=== PATIENT | female | born 1995 | race African-American/Black ===

== ENCOUNTER 2017-06-09 12:58 | Emergency (ER) | payer OTHER ==
[2017-06-09 13:13] VITALS: BP 151/73; BMI 19.4
[2017-06-09 13:25] LABS: BILIRUBIN,URINE NEGATIVE (NEGATIVE); BLOOD/HEMOGLOBIN,URINE NEGATIVE (NEGATIVE); GLUCOSE, URINE NEGATIVE (NEGATIVE); KETONES,URINE NEGATIVE (NEGATIVE); LEUKOCYTE ESTERASE ,URINE 2+ (NEGATIVE); NITRITES,URINE NEGATIVE (NEGATIVE); PH,URINE 6.5 (5.0 - 8.0); PROTEIN,URINE 1+ (NEGATIVE); UROBILINOGEN,URINE NORMAL (NORMAL)
[2017-06-09 13:37] LABS: APPEARANCE,URINE CLOUDY (CLEAR); COLOR,URINE YELLOW (YELLOW)
--- NOTE | 2017-06-09 13:37 | DR.GENAD ---
HPI - PCP Primary Care Physician: Mauri - HPI Comment HPI Comment: Low back pain - Complaint/Symptoms Chief Complaint:: "I helped my sister move some boxes Saturday, and now for 2 days I have been having pains come from my butt to the middle of my back. It is really [place] pains. It comes and goes. I am 20 wks + 1 day . - Nurses notes reviewed Nurses Notes Review: Yes - Source History Provided: Patient - Mode of Arrival Mode of Arrival: Ambulatory - Timing Onset of Chief Complaint: 06/07/17 - Duration Duration: Intermittent - Location Location: low back - Severity Severity: Moderate - Associated Signs and Symptoms Associated Signs and Symptoms: none PMH - PMH Past Medical History: Yes Past Medical History: Anemia Past Medical History Comment: Sickle cell anemia Past Surgical History: No - Family History History of Family Medical Conditions: Yes Family Medical History: Diabetes Mellitus, [place], Hypertension - Social History Does patient currently use any type of tobacco product: Yes Have you used tobacco products in the last 12 months: Yes Type of Tobacco Use: Cigarettes Alcohol Use: None Do you use any recreational Drugs:: No Lives With: Family Lives Where: Home - infectious screening In the last 2 months have you had wt loss of >10#?: NO Have you had fever, night sweats or hemotysis?: No Have you traveled outside the country in the last 6 months?: No Isolation: Standard ROS - Review of Systems Constitutional: No Symptoms Reported Eyes: No Symptoms Reported ENTM: No Symptoms Reported Respiratoy: No Symptoms Reported Cardiovascular: No Symptoms Reported Gastrointestinal/Abdominal: No Symptoms Reported Genitourinary: No Symptoms Reported Neurological: No Symptoms Reported Musculoskeletal: Back Pain Integumentary: No Symptoms Reported Hematologic/Lymphatic: No Symptoms Reported Endocrine: No Symptoms Reported Psychiatric: No Symptoms Reported All Other Systems: Reviewed and Negative PE - Vital Signs Vitals: Temperature 97.4 F Pulse Rate 102 Respiratory Rate 18 Blood Pressure 151/73 O2 Sat by Pulse Oximetry 97 - General Limitations: No Limitations General Appearance: Alert, Other (appears in pain) - Head Head Exam: Normal Inspection - Eyes Eye exam: Normal Appearance, PERRL, EOMI - ENT ENT Exam: Normal Exam - Neck Neck Exam: Normal Inspection - Chest Chest Inspection: Normal Inspection - Respiratory Respiratory Exam: Normal Lung Sounds Bilat Respiratory Exam: Bilateral Clear to Auscultation - Cardiovascular Cardiovascular Exam: Regular Rate, Normal Rhythm - Abdominal Exam Abdominal Exam: Normal Inspection, Normal Bowel Sounds, Soft - Extremities Extremities Exam: Normal Inspection - Back Back Exam: Normal Inspection, Paraspinal Tenderness (Right lumbar paraveretebral muscles) - Neurologic Neurological Exam: Alert, Oriented X3, CN II-XII Intact - Psychiatric Psychiatric Exam: Normal Affect, Normal Mood - Skin Skin Exam: Warm, Dry, Intact, Normal Color ROR - Labs Reviewed Laboratory: Specimen Type Clean catch urine 06/09/17 13:16 Urine Color Yellow (YELLOW) 06/09/17 13:16 Urine Appearance Cloudy (CLEAR) 06/09/17 13:16 Urine pH 6.5 (5.0 - 8.0) 06/09/17 13:16 Ur Specific [place] 1.010 (1.000-1.030) 06/09/17 13:16 Urine Protein 1+ (NEGATIVE) 06/09/17 13:16 Urine Glucose (UA) Negative (NEGATIVE) 06/09/17 13:16 Urine Ketones Negative (NEGATIVE) 06/09/17 13:16 Urine Occult Blood Negative (NEGATIVE) 06/09/17 13:16 Urine Nitrite Negative (NEGATIVE) 06/09/17 13:16 Urine Bilirubin Negative (NEGATIVE) 06/09/17 13:16 Urine Urobilinogen Normal (NORMAL) 06/09/17 13:16 Ur Leukocyte Esterase 2+ (NEGATIVE) 06/09/17 13:16 Urine RBC Rare /HPF (NEGATIVE) 06/09/17 13:16 Urine WBC 0 -2 /HPF (NEGATIVE) 06/09/17 13:16 Ur Squamous Epith Cells Numerous /HPF (NEGATIVE) 06/09/17 13:16 Amorphous Sediment 1+ /HPF (NEGATIVE) 06/09/17 13:16 Urine Bacteria Trace /HPF (NEGATIVE) 06/09/17 13:16 Urine Yeast Rare /HPF (NEGATIVE) 06/09/17 13:16 Ur Culture Indicated? No/not indicated 06/09/17 13:16 - Diagnosis Discharge Problem: UTI (urinary tract infection) during , Low back pain Discharge Problem: (Ruled Out): UTI (urinary tract infection) - Discharge Plan Disposition: HOME, SELF-CARE Condition: Stable - Follow ups/Referrals Follow ups/Referrals: DIANE STEPHEN [Primary Care Provider] - 3 days - Instructions
[2017-06-09 13:40] LABS: BACTERIA,URINE TRACE /HPF (NEGATIVE); RBC,URINE RARE /HPF (NEGATIVE); SQUAMOUS EPITHELIAL CELL,UR NUMEROUS /HPF (NEGATIVE)
[2017-06-09 13:41] LABS: AMORPHOUS SEDIMENT,UR 1+ /HPF (NEGATIVE); YEAST,URINE RARE /HPF (NEGATIVE)
[2017-06-09] MEDS ORDERED: MACROBID CAP 100 MG EXT REL PO ONE ×2 (14:49→14:52)
== END 2017-06-09 14:54 | disposition home or self-care (01) ==
LOC: ER 13:06
DX: M54.5 Low back pain (principal); Z3A.20 20 weeks gestation of pregnancy
CPT/HCPCS: 81001; 99283; 99284

== ENCOUNTER 2020-10-06 11:43 | Inpatient (IN) ==
[2020-10-06] MEDS ORDERED: LR 1000 ML IV 1,000 ML IV ONE ×4 (12:09→19:43)
[2020-10-06] MEDS ORDERED: MAGNESIUM SULFATE 40 GRAMS IV IV PRN (12:13)
[2020-10-06 13:00] LABS: BILIRUBIN,URINE NEGATIVE (NEGATIVE); BLOOD/HEMOGLOBIN,URINE 1+ (NEGATIVE); GLUCOSE, URINE NEGATIVE (NEGATIVE); KETONES,URINE NEGATIVE (NEGATIVE); LEUKOCYTE ESTERASE ,URINE 3+ (NEGATIVE); NITRITES,URINE NEGATIVE (NEGATIVE); PROTEIN,URINE NEGATIVE (NEGATIVE); UROBILINOGEN,URINE NORMAL (NORMAL)
[2020-10-06] MEDS ORDERED: MAGNESIUM SULFATE 40 GRAMS IV 40 G/1,000 ML BAG IV ONE (13:30)
[2020-10-06 13:33] LABS: APPEARANCE,URINE FLOCCULENT (CLEAR); COLOR,URINE YELLOW (YELLOW)
[2020-10-06 13:38] LABS: AMORPHOUS SEDIMENT,UR TRACE /HPF (NEGATIVE); BACTERIA,URINE TRACE /HPF (NEGATIVE); SQUAMOUS EPITHELIAL CELL,UR MODERATE /HPF (NEGATIVE)
[2020-10-06] MEDS: LR 1000 ML IV 1,000 ML IV SCH ×2 (14:00→22:00)
[2020-10-07] MEDS ORDERED: LR 1000 ML IV 1,000 ML IV ONE ×2 (02:55→09:09)
[2020-10-07] MEDS: LR 1000 ML IV 1,000 ML IV SCH ×2 (03:00→10:30)
[2020-10-07] MEDS: PROCARDIA (PLAIN) CAP 10 MG PO SCH ×2 (08:05→13:45)
[2020-10-07] MEDS ORDERED: ROCEPHIN 1 GRAM IV PREMIX 1 G/50 ML IV.SOLN. IV SCH (09:00)
[2020-10-07] MEDS ORDERED: PRENATAL PLUS PO SCH (09:00)
[2020-10-07] MEDS ORDERED: ROCEPHIN 1 GRAM IV PREMIX 1 G/50 ML IV.SOLN. IV ONE (09:04)
[2020-10-07 14:06] VITALS: BP 120/70
== END 2020-10-07 15:45 | disposition home or self-care (01) | DRG 832 ==
LOC: LD 11:43
PROVIDERS: ADMIT Obstetrics & Gynecology Obstetrics; ATTEND Obstetrics & Gynecology Obstetrics
DX: Z3A.35 35 weeks gestation of pregnancy; O60.03 Preterm labor without delivery, third trimester; Z20.822 Contact with and (suspected) exposure to COVID-19; O23.33 Infections of other parts of urinary tract in pregnancy, third trimester

== ENCOUNTER 2020-10-10 12:57 | Observation (INO) ==
[2020-10-10 13:25] VITALS: BMI 20.8
[2020-10-10 13:42] LABS: BILIRUBIN,URINE NEGATIVE (NEGATIVE); BLOOD/HEMOGLOBIN,URINE 5+ (NEGATIVE); GLUCOSE, URINE NEGATIVE (NEGATIVE); KETONES,URINE NEGATIVE (NEGATIVE); LEUKOCYTE ESTERASE ,URINE 2+ (NEGATIVE); NITRITES,URINE NEGATIVE (NEGATIVE); PROTEIN,URINE 2+ (NEGATIVE); UROBILINOGEN,URINE NORMAL (NORMAL)
[2020-10-10 13:51] LABS: APPEARANCE,URINE CLOUDY (CLEAR); BACTERIA,URINE TRACE /HPF (NEGATIVE); COLOR,URINE BROWN (YELLOW); RBC,URINE TNTC /HPF (0-3); SQUAMOUS EPITHELIAL CELL,UR MODERATE /HPF (NEGATIVE)
[2020-10-10 13:53] LABS: AMNISURE ROM TEST NO MEMBRANES RUPTURE (NO RUPTURE)
[2020-10-10 14:28] LABS: BILIRUBIN,URINE NEGATIVE (NEGATIVE); BLOOD/HEMOGLOBIN,URINE 5+ (NEGATIVE); GLUCOSE, URINE NEGATIVE (NEGATIVE); KETONES,URINE NEGATIVE (NEGATIVE); LEUKOCYTE ESTERASE ,URINE 1+ (NEGATIVE); NITRITES,URINE NEGATIVE (NEGATIVE); PROTEIN,URINE 2+ (NEGATIVE); UROBILINOGEN,URINE NORMAL (NORMAL)
[2020-10-10 14:40] LABS: APPEARANCE,URINE CLOUDY (CLEAR); COLOR,URINE BROWN (YELLOW)
[2020-10-10 14:41] LABS: BACTERIA,URINE NEGATIVE /HPF (NEGATIVE); RBC,URINE TNTC /HPF (0-3); SQUAMOUS EPITHELIAL CELL,UR RARE /HPF (NEGATIVE)
[2020-10-10] MEDS ORDERED: MORPHINE SULFATE INJ 2 MG INJ IVP PRN (14:59)
[2020-10-10] MEDS: LR 1000 ML IV 1,000 ML IV SCH ×2 (15:00→21:07)
[2020-10-10] MEDS ORDERED: LR 1000 ML IV 1,000 ML IV ONE (15:00)
[2020-10-10] MEDS: PROCARDIA (PLAIN) CAP 10 MG PO SCH ×2 (15:30→21:51)
[2020-10-11] MEDS: LR 1000 ML IV 1,000 ML IV SCH (03:39)
[2020-10-11 08:24] VITALS: BP 108/73
[2020-10-11] MEDS: PROCARDIA (PLAIN) CAP 10 MG PO SCH (08:48)
[2020-10-11] MEDS ORDERED: PERCOCET TAB 5/325 MG PO PRN (10:10)
== END 2020-10-11 11:35 | disposition home or self-care (01) ==
LOC: ER 13:14 → MED/SURG 13:14
PROVIDERS: ADMIT Obstetrics & Gynecology Obstetrics; ATTEND Obstetrics & Gynecology Obstetrics

== ENCOUNTER 2020-11-02 06:43 | Inpatient (IN) ==
[2020-11-02] MEDS ORDERED: D5LR 1L W PITOCIN 10 UNITS/L 10 UNITS/1,000 ML BAG IV ONE (06:56)
[2020-11-02] MEDS ORDERED: BETADINE SOLN ONE (06:56)
[2020-11-02] MEDS ORDERED: D5 1/2 NS 1000 ML 1,000 ML IV ONE (06:56)
[2020-11-02] MEDS ORDERED: D5 1/2 NS 1L W PITOCIN 20 UNITS/L 20 UNITS/1,000 ML BAG IV ONE (06:56)
[2020-11-02] MEDS ORDERED: PITOCIN ONE (06:56)
[2020-11-02] MEDS ORDERED: PHENERGAN INJ 25 MG IM PRN ×2 (07:18→13:29)
[2020-11-02] MEDS ORDERED: MORPHINE SULFATE INJ 2 MG INJ IVP PRN (07:18)
[2020-11-02] MEDS ORDERED: D5LR 1L W PITOCIN 10 UNITS/L 10 UNITS/1,000 ML BAG IV PRN (07:18)
[2020-11-02] MEDS ORDERED: REGLAN INJ 10 MG VIAL IVP PRN (07:18)
[2020-11-02] MEDS ORDERED: PITOCIN IVP ONE (07:18)
[2020-11-02] MEDS ORDERED: STADOL INJ IVP PRN (07:22)
[2020-11-02 07:34] LABS: BILIRUBIN,URINE NEGATIVE (NEGATIVE); BLOOD/HEMOGLOBIN,URINE NEGATIVE (NEGATIVE); GLUCOSE, URINE NEGATIVE (NEGATIVE); KETONES,URINE NEGATIVE (NEGATIVE); LEUKOCYTE ESTERASE ,URINE 3+ (NEGATIVE); NITRITES,URINE NEGATIVE (NEGATIVE); PROTEIN,URINE NEGATIVE (NEGATIVE); UROBILINOGEN,URINE NORMAL (NORMAL)
[2020-11-02 07:42] LABS: APPEARANCE,URINE CLEAR (CLEAR); BACTERIA,URINE TRACE /HPF (NEGATIVE); COLOR,URINE YELLOW (YELLOW); RBC,URINE NONE SEEN /HPF (0-3); SQUAMOUS EPITHELIAL CELL,UR FEW /HPF (NEGATIVE)
[2020-11-02 07:59] LABS: BASOPHILS % (AUTO) 0.4 % (0.2-1.0); EOSINOPHILS # (AUTO) 0.1 x10^3/uL (0.0-0.2); EOSINOPHILS % (AUTO) 1.1 % (0.9-2.9); HEMATOCRIT 29.8 % (36.0-47.0); HEMOGLOBIN 9.8 g/dL (12.0-16.0); LYMPHOCYTES # (AUTO) 1.5 X10^3/uL (1.3-2.9); LYMPHOCYTES % (AUTO) 18.2 % (21.0-51.0); MEAN CORPUSCULAR HEMOGLOBIN 26.5 pg (27.0-34.0); MEAN CORPUSCULAR VOLUME 80.2 fL (80.0-100.0); MONOCYTES # (AUTO) 0.5 x10^3/uL (0.3-0.8); MONOCYTES % (AUTO) 6.3 % (0.0-13.0); NEUTROPHILS # (AUTO) 6.1 x10^3/uL (2.2-4.8); PLATELET COUNT 241 X10^3/uL (150.0-450.0); RED BLOOD COUNT 3.72 X10^6/uL (3.5-5.4); RED CELL DISTRIBUTION WIDTH 15.4 % (11.6-16.5); WHITE BLOOD COUNT 8.3 X10^3/uL (3.6-10.0)
[2020-11-02] MEDS ORDERED: D5 1/2 NS 1000 ML 1,000 ML IV SCH (08:00)
[2020-11-02 08:02] LABS: BLOOD UREA NITROGEN 8 mg/dL (7-18); CALCIUM 8.1 mg/dL (8.5-10.1); CARBON DIOXIDE 20.9 mmol/L (21-32); CHLORIDE 103 mmol/L (98-107); CREATININE 0.61 mg/dL (0.55-1.02); SODIUM 136 mmol/L (136-145); eGFR NON BLACK RACES > 60 (>60)
[2020-11-02] MEDS ORDERED: STADOL INJ ONE (09:53)
[2020-11-02] MEDS ORDERED: FENTANYL INJ 100 mcg ONE (09:54)
[2020-11-02] MEDS ORDERED: NAROPIN EPIDURAL 0.2% 100 ML ONE (09:54)
[2020-11-02] MEDS ORDERED: LR 1000 ML IV 1,000 ML IV ONE (09:54)
[2020-11-02] MEDS ORDERED: ROCEPHIN 1 GRAM IV PREMIX 1 G/50 ML IV.SOLN. IV ONE (10:29)
[2020-11-02] MEDS: ROCEPHIN VIAL 1 GRAM 1 G in NS 100 ML IV + SPIKE MINIBAG* 100 ML IV SCH (10:39)
[2020-11-02] MEDS ORDERED: MOTRIN TAB 800 MG PO PRN (13:29)
[2020-11-02] MEDS ORDERED: D5 1/2 NS 1000 ML 1,000 ML with PITOCIN 20 UNITS IV SCH ×2 (14:00)
[2020-11-02] MEDS ORDERED: AMBIEN PO PRN (14:14)
[2020-11-02] MEDS ORDERED: MILK OF MAGNESIA PO PRN (14:14)
[2020-11-02] MEDS ORDERED: DERMOPLAST PAIN RELIEF SPRAY TOP PRN (14:14)
[2020-11-02] MEDS: MOTRIN TAB 800 MG PO PRN (22:02)
[2020-11-03 06:07] LABS: HEMATOCRIT 27.7 % (36.0-47.0); HEMOGLOBIN 9.4 g/dL (12.0-16.0)
[2020-11-03] MEDS: PRENATAL PLUS PO SCH (08:14)
[2020-11-03] MEDS: ROCEPHIN VIAL 1 GRAM 1 G in NS 100 ML IV + SPIKE MINIBAG* 100 ML IV SCH (08:15)
[2020-11-03] MEDS: MOTRIN TAB 800 MG PO PRN ×2 (08:15→22:00)
[2020-11-03] MEDS ORDERED: NS 100 ML IV 100 ML with VENOFER 400 MG IV NR ×2 (08:46)
[2020-11-04 07:56] VITALS: BP 133/73
[2020-11-04] MEDS: PRENATAL PLUS PO SCH (09:07)
[2020-11-04] MEDS: ROCEPHIN VIAL 1 GRAM 1 G in NS 100 ML IV + SPIKE MINIBAG* 100 ML IV SCH (09:08)
[2020-11-04] MEDS: MOTRIN TAB 800 MG PO PRN (09:54)
[2020-11-04] MEDS ORDERED: ADACEL or BOOSTRIX TDaP VACCINE IM ONE (11:07)
== END 2020-11-04 11:23 | disposition home or self-care (01) | DRG 807 ==
LOC: LD 06:43 → MED/SURG 14:15
PROVIDERS: ADMIT Obstetrics & Gynecology Obstetrics; ATTEND Obstetrics & Gynecology Obstetrics
DX: D50.8 Other iron deficiency anemias; O71.82 Other specified trauma to perineum and vulva; Z20.822 Contact with and (suspected) exposure to COVID-19; O26.893 Other specified pregnancy related conditions, third trimester; Z37.0 Single live birth; Z3A.39 39 weeks gestation of pregnancy; O99.013 Anemia complicating pregnancy, third trimester; O70.0 First degree perineal laceration during delivery